=== PATIENT | male | born 2000 | race African-American/Black ===

== ENCOUNTER 2024-06-05 14:00 | Outpatient (REF) | payer OTHER, SELFPAY ==
--- NOTE | ~2024-06-05 | MR_ITS ---
EXAMINATION: MR PELVIS WITHOUT CONTRAST CLINICAL INFORMATION: Injury COMPARISON: None available. TECHNIQUE: MRI without contrast is performed on the pelvis. FINDINGS: There is moderate marrow edema of the right pubic bone, mild marrow edema of the left pubic bone. This may be degenerative and/or stress related. There are small osteophytes superiorly. There is minimal edema of the adjacent right adductor insertion. No effusion of the symphysis. No tear of the rectus abdominis or adductor tendon insertions. No hip joint effusions. No femoral stress reaction, fracture, or evidence of avascular necrosis. Muscle signal is otherwise normal. No adenopathy. No hernia. MR/MR pelvis wo con IMPRESSION: Moderate marrow edema of the right pubic bone and mild marrow edema of the left pubic bone which may be degenerative and/or stress related. Minimal edema of the adjacent right adductor insertion. No tendon tear. Otherwise unremarkable.
== END 2024-06-05 14:01 | disposition home or self-care (01) ==
LOC: HO.MRI 14:00
PROVIDERS: Visit Provider Family Medicine
DX: S76.211D Strain of adductor muscle, fascia and tendon of right thigh, subsequent encounter (principal)
CPT/HCPCS: 72195